=== PATIENT | female | born 2005 | race Two or more races ===

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

== ENCOUNTER 2024-01-10 21:20 | Emergency (ER) | payer OTHER ==
[2024-01-10 22:23] LABS: Barbiturates NEGATIVE (NEGATIVE); Benzodiazepines NEGATIVE (NEGATIVE); Cocaine NEGATIVE (NEGATIVE); METHAMPHETAM NEGATIVE (NEGATIVE); Methadone NEGATIVE (NEGATIVE); Opiates NEGATIVE (NEGATIVE); Phencyclidine NEGATIVE (NEGATIVE); THC Cannibis NEGATIVE (NEGATIVE)
[2024-01-10 22:23] LABS: ALT/SGPT 15 U/L (13-56); AST/SGOT 11 U/L (15-37); Albumin 3.1 g/dL (3.4-5.0); Albumin/Globulin Ratio 0.8 (1.1-1.8); Alkaline Phosphatase 78 U/L (45-117); Anion Gap 9.7 mEq/L (5.0-15.0); BUN Blood Urea Nitrogen 10 mg/dL (7-18); Bicarbonate 23 mEq/L (21-32); Bilirubin Total 0.2 mg/dL (0.2-1.0); Globulin 3.9 g/dL (2.3-3.5); Glomerular Filtration Rate 131 ml/min (=/>90); Glucose Level 87 mg/dL (74-106); Lipase 25 U/L (13-75); Potassium 3.7 mEq/L (3.5-5.1); Sodium Level 138 mEq/L (136-145)
[2024-01-10 22:25] LABS: Specific Gravity 1.019 (1.005-1.030)
[2024-01-10 22:26] LABS: Bilirubin Direct < 0.2 mg/dL (0-0.2)
[2024-01-10 22:35] LABS: Absolute Basophils 0.1 K/uL (0-0.5); Absolute Eosinophils 0.2 K/uL (0-0.5); Absolute Lymphocytes (CBC) 3.3 K/uL (0.7-4.9); Absolute Monocytes 0.9 K/uL (0.1-1.3); Basophils % 1.1 % (0-1.3); Hematocrit 34.2 % (36.0-45.0); Hemoglobin 11.6 g/dL (12.0-15.0); Lymphocytes % 31.3 % (15.3-44.8); MCH 30.5 pg (27.0-35.0); MCHC 33.8 g/dL (32.0-36.0); MCV 90.1 fL (80-100); MPV 7.8 fL (7.6-11.3); Monocytes % 8.9 % (3.3-12.3); Neutrophils % 56.7 % (41.7-73.7); Nucleated Red Blood Cells % 0.2 % (0-0); Platelets 479 thou/uL (152-406); Red Cell Distribution Width 13.4 % (12.1-15.2)
[2024-01-10 22:36] LABS: PT Prothrombin Time 10.8 SECONDS (9.4-12.5); PTT, Activated Partial Thromb 39.1 SECONDS (24.3-36.9); Protime INR 0.96
[2024-01-10 22:43] LABS: Specific Gravity 1.019 (1.005-1.030); Urine Bacteria None Seen /HPF (<20); Urine Bilirubin NEGATIVE (Negative); Urine Blood Negative (Negative); Urine Clarity Turbid (Clear); Urine Color Light-Yellow (Yellow); Urine Culture Reflex Order NOT NEEDED; Urine Glucose NEGATIVE (Negative); Urine Ketones NEGATIVE (Negative); Urine Microscopic Reflex YN ORDER UMIC; Urine Mucus Slight /HPF (None Seen); Urine Nitrite NEGATIVE (Negative); Urine Protein NEGATIVE (Negative); Urine RBC <5 /HPF (None Seen); Urine Urobilinogen Normal (Normal); Urine WBC <5 /HPF (<5); Urine pH 6.5 (5.0-7.0)
[2024-01-10] MEDS ORDERED: LORazepam 2 MG/ML VIAL ONE (22:49)
--- NOTE | 2024-01-11 05:16 | EDPHYS ---
Physician Documentation [facility] Name: Tobi Lawrence Age: 18 yrs Sex: Female : 2005 Arrival Date: 01/10/2024 Time: 21:20 Bed 15 Private MD: ED Physician Stephen Norris HPI: 01/09 21:29 This 18 yrs old [place] Female presents to ER via Unassigned with complaints of sp4 anxiety . 01/10 05:11 18-year-old female presents to the emergency room with complaint of anxiety about the sp4 fact that she is in the homeless skilled nursing. Also reported chest pains to the EMS.. 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 - Infectious Disease History:: Denies. - Social history:: Smoking status: Patient denies any tobacco usage or history of. - Family history:: not pertinent. ROS: 01/10 05:11 Constitutional: Negative for fever, chills, and weight loss, positive for anxiety , sp4 positive for abdominal pain All other systems are negative, Exam: 05:12 Constitutional: This is a well developed, well nourished patient who is awake, alert, sp4 patient is emotionally upset and tearful on arrival, anxious appearing Head/Face: Normocephalic, atraumatic. Eyes: Pupils equal round and reactive to light, extra-ocular motions intact. Lids and lashes normal. Conjunctiva and sclera are not injected. Cornea within normal limits. Periorbital areas with no swelling, redness, or edema. ENT: Nares patent. No nasal discharge, no septal abnormalities noted. Tympanic membranes are normal and external auditory canals are clear. Oropharynx with no redness, swelling, or masses, exudates, or evidence of obstruction, uvula midline. Mucous membranes moist. Neck: Trachea midline, no thyromegaly or masses palpated, and no cervical lymphadenopathy. Supple, full range of motion without nuchal rigidity, or vertebral point tenderness. Chest/axilla: Normal chest wall appearance and motion. Nontender with no deformity. No lesions are appreciated. Cardiovascular: Regular rate and rhythm with a normal S1 and S2. No gallops, murmurs, or rubs. Normal PMI, no JVD. No pulse deficits. Respiratory: Lungs have equal breath sounds bilaterally, clear to auscultation and percussion. No rales, rhonchi or wheezes noted. No increased work of breathing, no retractions or nasal flaring. Abdomen/GI: Soft, with normal bowel sounds. No distension or tympany. No guarding or rebound. No evidence of tenderness throughout. Back: No spinal tenderness. No costovertebral tenderness. Skin: Warm, dry with normal turgor. Normal color with no rashes, no lesions, and no evidence of cellulitis. MS/ Extremity: Pulses equal, no cyanosis. Neurovascular intact. Full, normal range of motion. Neuro: Awake and alert, GCS 15, oriented to person, place, time, and situation. Cranial nerves II-XII grossly intact. Motor strength 5/5 in all extremities. Sensory grossly intact. Psych: Awake, alert, with orientation to person, place and time. Positive for emotional upset, positive for tearfulness, negative for suicidal ideation Vital Signs: 01/09 21:53 BP 121 / 87; Pulse 84; Resp 18; Temp 97.9; Pulse Ox 100% ; Weight 54.43 kg; Height 5 al5 ft. 2 in. ; Pain 6/10; 22:00 BP 114 / 77; Pulse 89; Resp 18; Pulse Ox 99% on R/A; al5 23:00 BP 126 / 90; Pulse 72; Resp 17; Pulse Ox 100% on R/A; al5 01/10 00:12 BP 100 / 69; Pulse 76; Resp 18; Pulse Ox 100% on R/A; al5 00:30 BP 110 / 77; Pulse 50; Resp 14; Pulse Ox 100% on R/A; al5 01:00 BP 102 / 73; Pulse 58; Resp 16; Pulse Ox 98% on R/A; al5 01:30 BP 100 / 65; Pulse 56; Resp 15; Pulse Ox 99% on R/A; al5 02:00 BP 100 / 70; Pulse 56; Resp 17; Pulse Ox 100% on R/A; al5 02:30 BP 101 / 61; Pulse 59; Resp 17; Pulse Ox 100% on R/A; al5 03:00 BP 96 / 65; Pulse 57; Resp 16; Pulse Ox 99% on R/A; al5 03:30 BP 99 / 67; Pulse 55; Resp 16; Pulse Ox 100% ; al5 04:00 BP 110 / 68; Pulse 57; Resp 16; Pulse Ox 99% on R/A; al5 05:41 BP 101 / 65; Pulse 78; Resp 16; Pulse Ox 100% on R/A; al5 01/09 21:53 Body Mass Index 21.95 (54.43 kg, 157.48 cm) - Percentile 52.8 % al5 01/09 21:53 Pain Scale: Adult al5 Ilda Coma Score: 05:12 Eye Response: spontaneous(4). Motor Response: obeys commands(6). Verbal Response: sp4 oriented(5). Total: 15. MDM: 00:50 Patient medically screened. sp4 05:12 Differential Diagnosis altered mental status, Anxiety attack, Emotional upset . Data sp4 reviewed: vital signs, nurses notes, EMS record, old medical records, lab test result(s). ED course: Patient very emotionally upset on arrival but her primary complaint is the fact that she does not want to stay in the homeless skilled nursing. Patient also reported some chest pains and abdominal pains. Based on the patient's prior medical records she has no history of significant medical illness. Patient is stable for discharge from the emergency department since at this time there is no acute emergent medical or psychiatric condition. . 05:14 Consideration of Admission/Observation Escalation of care including sp4 admission/observation considered. ED course: Valium or Ativan were NOT given. . 01/09 21:30 Order name: Acetaminophen; Complete Time: 05: sp4 01/09 21:30 Order name: Basic Metabolic Panel; Complete Time: sp4 01/09 21:30 Order name: CBC with Diff; Complete Time: : sp4 01/09 21:30 Order name: ETOH Level; Complete Time: 05: sp4 01/09 21:30 Order name: Hepatic Function; Complete Time: 4 01/09 21:30 Order name: PT-INR; Complete Time: : [facility] 01/09 21:30 Order name: Test, Urine; Complete Time: 05:09 [facility] 01/09 21:30 Order name: Ptt, Activated; Complete Time: 05:09 [facility] 01/09 21:30 Order name: Salicylate; Complete Time: 05:09 [facility] 01/09 21:30 Order name: Urinalysis w/ reflexes; Complete Time: 05:09 [facility] 01/09 21:30 Order name: Urine Drug Screen; Complete Time: 05:09 [facility] 01/09 21:30 Order name: Lipase; Complete Time: 05:09 [facility] 01/09 21:30 Order name: IV Saline Lock; Complete Time: 22:44 [facility] 01/09 21:30 Order name: Labs collected and sent; Complete Time: 22:44 [facility] 01/09 21:30 Order name: Suicide Screening ([place]); Complete Time: 23:18 [facility] 01/09 22:57 Order name: Misc. Order: at this time please hold all medications ; Complete Time: 23:00sp4 Administered Medications: 01/09 23:00 Not Given (patient relax and sleeping ): ativan2 mg IVP once ha1 23:01 Not Given (patient relaxx): diazepam5 mg PO once ha1 Disposition Summary: 01/11/24 05:15 Discharge Ordered Notes: Location: Home sp4 Problem: new sp4 Symptoms: have improved sp4 Condition: Stable sp4 Diagnosis - Emotional upset, acute anxiety attack sp4 Followup: sp4 - With: Private Physician - When: As needed - Reason: Discharge Instructions: - Discharge Summary Sheet sp4 - Managing Anxiety, Adult sp4 Forms: - Patient Portal Instructions sp4 Signatures: Dispatcher [employer] EDMS Stephen Norris MD MD sp4 Raya Hermosillo RN RN al5 Dinorah Alfredo RN ha1 Corrections: (The following items were deleted from the chart) 21: 21:31 ACETAMINOPHEN+C.LAB.BRZ ordered. EDMS EDMS 21:31 21:31 BASIC METABOLIC PANEL+C.LAB.BRZ ordered. EDMS EDMS 21:31 21:31 CBC+H.LAB.BRZ ordered. EDMS EDMS 21:31 21:31 ETHANOL+C.LAB.BRZ ordered. EDMS EDMS 21:31 21:31 HEPATIC FUNCTION+C.LAB.BRZ ordered. EDMS EDMS 21:31 PROTIME (+INR)+COAG.LAB.BRZ ordered. EDMS EDMS 21:31 Test, Urine+UC.LAB.BRZ ordered. EDMS EDMS 21:31 PTT, ACTIVATED+COAG.LAB.BRZ ordered. EDMS EDMS 21:31 SALICYLATE+C.LAB.BRZ ordered. EDMS EDMS 21:31 Urinalysis+U.LAB.BRZ ordered. EDMS EDMS 21:31 URINE DRUG SCREEN+UC.LAB.BRZ ordered. EDMS EDMS 01/10 04:45 01/09 21:30 EKG - Nurse/Tech ordered. sp4 al5
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
[2024-01-11 05:52] VITALS: TEMP 97.9
[2024-01-11 06:20] VITALS: BP 101/65; O2SAT 100
== END 2024-01-11 05:43 | disposition home or self-care (01) ==
LOC: ER 21:20
DX: F41.0 Panic disorder [episodic paroxysmal anxiety] (principal); Z59.01 Sheltered homelessness
CPT/HCPCS: 36415; 80048; 80076; 80143; 80179; 80307; 81001; 81025; 82077; 83690; 85025; 85610; 85730

== ENCOUNTER 2024-07-08 19:25 | Emergency (ER) | payer OTHER, MEDICAID ==
[2024-07-08 19:55] LABS: Absolute Basophils 0.1 K/uL (0-0.5); Absolute Lymphocytes (CBC) 2.1 K/uL (0.7-4.9); Absolute Monocytes 0.6 K/uL (0.1-1.3); Absolute Neutrophil 2.3 K/uL (1.8-8.0); Basophils % 1.3 % (0-1.3); Hematocrit 37.7 % (36.0-45.0); Hemoglobin 12.6 g/dL (12.0-15.0); Lymphocytes % 40.4 % (15.3-44.8); MCH 31.4 pg (27.0-35.0); MCHC 33.4 g/dL (32.0-36.0); MPV 7.9 fL (7.6-11.3); Monocytes % 11.8 % (3.3-12.3); Neutrophils % 45.5 % (41.7-73.7); Platelets 304 thou/uL (152-406); RBC Red Blood Cell Count 4.01 M/uL (3.86-4.86); Red Cell Distribution Width 13.1 % (12.1-15.2)
[2024-07-08 19:58] LABS: Specific Gravity > 1.030 (1.005-1.030)
[2024-07-08 19:59] LABS: Specific Gravity > 1.030 (1.005-1.030); Sqamous Epithelial <5 /HPF (None Seen); Urine Bacteria <20 /HPF (<20); Urine Bilirubin NEGATIVE (Negative); Urine Blood Negative (Negative); Urine Clarity Clear (Clear); Urine Color Yellow (Yellow); Urine Culture Reflex Order NOT NEEDED; Urine Glucose NEGATIVE (Negative); Urine Ketones NEGATIVE (Negative); Urine Microscopic Reflex YN ORDER UMIC; Urine Mucus Slight /HPF (None Seen); Urine Nitrite NEGATIVE (Negative); Urine Protein 1+ (Negative); Urine RBC <5 /HPF (None Seen); Urine Urobilinogen 1+ (Normal); Urine WBC <5 /HPF (<5); Urine WBC Clump Rare /HPF (None Seen); Urine Yeast (Budding) Trace /HPF (None Seen)
[2024-07-08] MEDS ORDERED: KETOROLAC 30 MG/ML INJ ONE (20:04)
[2024-07-08] MEDS ORDERED: NA CHLORIDE 0.9% 1,000 ML ONE (20:05)
[2024-07-08] MEDS ORDERED: METOCLOPRAMIDE 10 MG/2mL INJ ONE (20:05)
[2024-07-08] MEDS ORDERED: DIPHENHYDRAMINE 50 MG/ML VIAL ONE (20:05)
[2024-07-08 20:12] LABS: AST/SGOT 13 U/L (15-37); Albumin 3.3 g/dL (3.4-5.0); Albumin/Globulin Ratio 0.9 (1.1-1.8); Alkaline Phosphatase 49 U/L (45-117); Anion Gap 10.8 mEq/L (5.0-15.0); BUN Blood Urea Nitrogen 16 mg/dL (7-18); Bicarbonate 28 mEq/L (21-32); Bilirubin Total 0.3 mg/dL (0.2-1.0); Globulin 3.8 g/dL (2.3-3.5); Glomerular Filtration Rate 110 ml/min (=/>90); Glucose Level 129 mg/dL (74-106); Lipase 24 U/L (13-75); Potassium 3.8 mEq/L (3.5-5.1); Protein, Total 7.1 g/dL (6.4-8.2); Sodium Level 142 mEq/L (136-145)
[2024-07-08 20:13] LABS: ALT/SGPT < 14 U/L (13-56)
--- NOTE | 2024-07-08 21:04 | RAD REPORT ---
EXAM: Right upper quadrant ultrasound. CLINICAL HISTORY: ABD PAIN COMPARISON: None. FINDINGS: Gallbladder: Normal. Bile ducts: No intrahepatic or extrahepatic biliary dilatation. Common bile duct measures 2 mm. Limited imaging of the liver shows no concerning finding. IMPRESSION: Unremarkable exam.
--- NOTE | 2024-07-08 21:22 | RAD REPORT ---
EXAM: XR of the abdomen HISTORY: Abdominal pain ABD PAIN COMPARISON: None FINDINGS: XR of the abdomen shows a nonspecific, nonobstructive bowel gas pattern. No suspicious ritika cifications are seen. Mild thoracolumbar levoscoliosis. Moderate stool throughout the colon. IMPRESSION: Moderate constipation.
--- NOTE | 2024-07-08 21:39 | ER ---
Nurse's Notes [facility] Name: Tobi Lawrence Age: 19 yrs Sex: Female : 2005 Arrival Date: 07/08/2024 Time: 19:25 Bed 15 Private MD: Diagnosis: Headache;Nausea;Constipation, unspecified;Abdominal pain, unspecified Presentation: 07/08 19:30 Chief complaint: EMS states: abdominal pain. Coronavirus screen: Client denies travel kj2 out of the [place] in the last 14 days. Ebola Screen: No symptoms or risks identified at this time. Initial Sepsis Screen: Does the patient meet any 2 criteria? No. Patient's initial sepsis screen is negative. Does the patient have a suspected source of infection? No. Patient's initial sepsis screen is negative. Risk Assessment: Do you want to hurt yourself or someone else? Patient reports no desire to harm self or others. Onset of symptoms was July 08, 2024. 19:30 Method Of Arrival: EMS: [facility] kj2 19:30 Acuity: WILLIAM 3 kj2 Triage Assessment: 19:32 General: Appears in no apparent distress. Behavior is cooperative. Pain: Complains of kj2 pain in abdomen. Neuro: Level of Consciousness is awake, alert, obeys commands, Oriented to person, place, time, situation. Cardiovascular: Patient's skin is warm and dry. Respiratory: Airway is patent Respiratory effort is unlabored. GI: Reports lower abdominal pain. : Reports burning with urination, since 2 days vaginal itching. 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 - Infectious Disease History:: Denies. - Social history:: Smoking status: unknown. Screenin:34 [facility] ED Fall Risk Assessment (Adult) History of falling in the last 3 months, kj2 including since admission No falls in past 3 months (0 pts) Confusion or Disorientation No (0 pts) Intoxicated or Sedated No (0 pts) Impaired Gait No (0 pts) Mobility Assist Device Used No (0 pt) Altered Elimination No (0 pt) Score/Fall Risk Level 0 - 2 = Low Risk Maintained a safe environment, Hourly rounding (assess needs \T\ fall precautionary measures) done. Abuse screen: Denies threats or abuse. Denies injuries from another. Nutritional screening: No deficits noted. Tuberculosis screening: No symptoms or risk factors identified. Assessment: 19:34 General: see triage assessment. kj2 19:45 GI: Bowel sounds hypoactive in left upper quadrant and right upper quadrant Abd is non kj2 tender X 4 quads. 20:30 Reassessment: Patient appears in no apparent distress at this time. Patient and/or kj2 family updated on plan of care and expected duration. Pain level reassessed. Patient is alert, oriented x 3, equal unlabored respirations, skin warm/dry/pink. 21:30 Reassessment: Patient appears in no apparent distress at this time. Patient and/or kj2 family updated on plan of care and expected duration. Pain level reassessed. Patient is alert, oriented x 3, equal unlabored respirations, skin warm/dry/pink. 21:54 Reassessment: Patient appears in no apparent distress at this time. Patient and/or kj2 family updated on plan of care and expected duration. Pain level reassessed. Patient is alert, oriented x 3, equal unlabored respirations, skin warm/dry/pink. Vital Signs: 20:30 BP 108 / 74; Pulse 70; Resp 18; Pulse Ox 100% on R/A; kj2 21:30 BP 88 / 72; Pulse 61; Resp 20; Temp 98; Pulse Ox 100% ; kj2 ED Course: 19:28 Patient arrived in ED. ec2 19:29 Tiago Potter MD is Attending Physician. ec2 19:29 Shey Mcpherson, LUCRECIA is Primary Nurse. kj2 19:30 Giovanny Dimas PA is PHCP. ec2 19:31 Triage completed. kj2 19:35 Arm band placed on Patient placed in an exam room, on a stretcher. kj2 19:35 Patient has correct armband on for positive identification. Bed in low position. Call kj2 light in reach. Side rails up X 1. Provided Education on: call light. 20:54 US Abdomen Limited: ruq In Process Unspecified. EDMS 21:09 XRAY Abdomen 1 View (KUB) In Process Unspecified. EDMS 21:55 No provider procedures requiring assistance completed. IV discontinued, intact, kj2 bleeding controlled, No redness/swelling at site. Pressure dressing applied. Administered Medications: 20:12 Drug: NS 0.9% IV 1000 ml IV at 1 bolus Per protocol; to be given as a bolus over 60 kj2 minutes Route: IV; Rate: 1 bolus; Site: right antecubital; 21:55 Follow up: IV Status: Completed infusion; IV Intake: 1000ml kj2 20:12 Drug: metoCLOPramide IVP 10 mg IVP once; over 1 to 2 minutes Route: IVP; Site: right kj2 antecubital; 21:55 Follow up: Response: No adverse reaction kj2 20:12 Drug: diphenhydrAMINE IVP 25 mg IVP once Route: IVP; Site: right antecubital; kj2 21:55 Follow up: Response: No adverse reaction kj2 20:12 Drug: Ketorolac IVP 15 mg IVP once Route: IVP; Site: right antecubital; kj2 21:55 Follow up: Response: No adverse reaction kj2 21:50 Drug: Lactulose PO 30 grams 45 ml PO once Volume: 45 ml; Route: PO; kj2 21:54 Follow up: Response: No adverse reaction kj2 21:50 Drug: Dulcolax PO Delayed Release Tablet 5 mg PO once Route: PO; kj2 21:54 Follow up: Response: No adverse reaction kj2 Medication: 19:35 VIS not applicable for this client. kj2 Intake: 21:55 IV: 1000ml; Total: 1000ml. kj2 Outcome: 21:39 Discharge ordered by . cp 21:57 Discharged to home ambulatory, kj2 21:57 Condition: stable 21:57 Discharge instructions given to patient, Instructed on discharge instructions, follow up and referral plans. Demonstrated understanding of instructions, follow-up care, 22:04 Patient left the ED. kj2 Signatures: Dispatcher [employer] EDMS Giovanny Dimas PA PA cp Corral, Edwin, MD MD ec2 Shey Mcpherson RN RN kj2 Corrections: (The following items were deleted from the chart) 20:32 20:32 To radiology for Abdomen Limited+[email or web address]. kj2 EDMS
--- NOTE | 2024-07-08 21:40 | EDPHYS ---
Physician Documentation [facility] Name: Tobi Lawrence Age: 19 yrs Sex: Female : 2005 Arrival Date: 07/08/2024 Time: 19:25 Bed 15 Private MD: ED Physician Tiago Pottre HPI: 07/08 19:33 This 19 yrs old [place] Female presents to ER via EMS with complaints of Abdominal cp Pain. 19:33 The patient presents with abdominal pain in the upper abdomen, mid abdomen. cp 19:33 Onset: The symptoms/episode began/occurred today. The symptoms do not radiate. cp Associated signs and symptoms: Pertinent positives: headache, Pertinent negatives: blood in stools, chest pain, diarrhea, dysuria, fever, hematuria, vomiting, vaginal bleeding. The symptoms are described as constant. 19:33 Severity of pain: in the emergency department the pain is unchanged. 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 - Infectious Disease History:: Denies. - Social history:: Smoking status: unknown. ROS: 19:35 Constitutional: Negative for body aches, chills, fever, poor PO intake, cp 19:35 Cardiovascular: Negative for chest pain, palpitations, cp 19:35 Respiratory: Negative for cough, shortness of breath, wheezing, 19:35 Abdomen/GI: Positive for abdominal pain, nausea, Negative for vomiting, diarrhea, 19:35 Neuro: Positive for headache, Negative for altered mental status, dizziness, weakness, 19:35 Eyes: Negative for injury, pain, redness, and discharge, cp 19:35 ENT: Negative for drainage from ear(s), ear pain, sore throat, difficulty swallowing, cp difficulty handling secretions, 19:35 Neck: Negative for pain with movement, pain at rest, stiffness, 19:35 Back: Negative for pain at rest, pain with movement, 19:35 : Negative for hematuria, burning with urination, difficulty urinating, vaginal bleeding, 19:35 All other systems are negative, Exam: 19:40 Constitutional: The patient appears in no acute distress, alert, awake, non-toxic, well cp developed, well nourished, 19:40 Head/Face: Normocephalic, atraumatic. cp 19:40 Eyes: Periorbital structures: appear normal, Pupils: equal, round, and reactive to light and accomodation, Extraocular movements: intact throughout, Conjunctiva: normal, no exudate, no injection, Sclera: no appreciated abnormality, Lids and lashes: appear normal, bilaterally, 19:40 ENT: External ear(s): are unremarkable, Nose: is normal, Mouth: Lips: moist, Oral mucosa: pink and intact, moist, Posterior pharynx: Airway: no evidence of obstruction, patent, erythema, is not appreciated, exudate, is not appreciated, 19:40 Chest/axilla: Inspection: normal, 19:40 Respiratory: the patient does not display signs of respiratory distress, Respirations: normal, no use of accessory muscles, no retractions, labored breathing, is not present, Breath sounds: are clear throughout, no decreased breath sounds, no stridor, no wheezing, 19:40 Abdomen/GI: Inspection: abdomen appears normal, Bowel sounds: active, all quadrants, Palpation: soft, in all quadrants, mild abdominal tenderness, in the right upper quadrant and left upper quadrant, rebound tenderness, is not appreciated, involuntary guarding, is not appreciated, 19:40 Back: CVA tenderness, is absent, 19:40 Neuro: Orientation: to person, place \T\ time. Mentation: is normal, Cerebellar function: cp is grossly normal, Motor: moves all fours, strength is normal, Sensation: no obvious gross deficits, Vital Signs: 20:30 BP 108 / 74; Pulse 70; Resp 18; Pulse Ox 100% on R/A; kj2 21:30 BP 88 / 72; Pulse 61; Resp 20; Temp 98; Pulse Ox 100% ; kj2 MDM: 19:29 Medical Screening Exam initiated ec2 20:00 Differential diagnosis: appendicitis, cholecystitis, Cholelithiasis, gastritis, cp non-specific abd pain, Pyelonephritis, urinary tract infection, migraine, electrolyte abnormality, dehydration, constipation. 21:38 Data reviewed: vital signs, nurses notes, lab test result(s), radiologic studies, plain cp films, ultrasound, and as a result, I will discharge patient. 21:38 I considered the following discharge prescriptions or medication management in the emergency department Medications were administered in the Emergency Department. See MAR. Test considered but Not performed: CT: head and ct abdomen/pelvis. Counseling: I had a detailed discussion with the patient and/or guardian regarding the historical points, exam findings, and any diagnostic results supporting the discharge/admit diagnosis, lab results, radiology results, to return to the emergency department if symptoms worsen or persist or if there are any questions or concerns that arise at home. Response to treatment: the patient's symptoms have mildly improved after treatment, and as a result, I will discharge patient. Special discussion: Based on the patient's Hx, exam, and Dx evaluation, there is no indication for emergent surgery or inpatient Tx. It is understood by the patient/guardian that if the Sx's persist or worsen they need to return immediately for re-evaluation. 07/08 19:32 Order name: CBC with Diff; Complete Time: 20:15 07/08 19:32 Order name: CMP; Complete Time: 20:15 07/08 20:15 Interpretation: Normal except: GLUC 129; AST 13; CA 8.3; ALB 3.3; GLOB 3.8; A/G 0.9. 07/08 19:32 Order name: Lipase; Complete Time: 20:15 07/08 19:32 Order name: Test, Urine; Complete Time: 20:15 07/08 20:15 Interpretation: Normal except: Urine SG > 1.030. 07/08 19:32 Order name: Urinalysis w/ reflexes; Complete Time: 20:15 07/08 20:15 Interpretation: Normal except: Urine SG > 1.030; UPROT 1+; UUROB 1+; BYST Trace. 07/08 20:16 Order name: US Abdomen Limited: ruq; Complete Time: 21:31 07/08 21:31 Interpretation: Reviewed. 07/08 20:46 Order name: XRAY Abdomen 1 View (KUB); Complete Time: 21:31 07/08 21:32 Interpretation: Report reviewed. 07/08 19:32 Order name: IV Saline Lock; Complete Time: 20:13 07/08 19:32 Order name: Labs collected and sent; Complete Time: 20:13 07/08 20:16 Order name: NPO; Complete Time: 20:31 cp Administered Medications: 20:12 Drug: NS 0.9% IV 1000 ml IV at 1 bolus Per protocol; to be given as a bolus over 60 kj2 minutes Route: IV; Rate: 1 bolus; Site: right antecubital; 21:55 Follow up: IV Status: Completed infusion; IV Intake: 1000ml kj2 20:12 Drug: metoCLOPramide IVP 10 mg IVP once; over 1 to 2 minutes Route: IVP; Site: right kj2 antecubital; 21:55 Follow up: Response: No adverse reaction kj2 20:12 Drug: diphenhydrAMINE IVP 25 mg IVP once Route: IVP; Site: right antecubital; kj2 21:55 Follow up: Response: No adverse reaction kj2 20:12 Drug: Ketorolac IVP 15 mg IVP once Route: IVP; Site: right antecubital; kj2 21:55 Follow up: Response: No adverse reaction kj2 21:50 Drug: Lactulose PO 30 grams 45 ml PO once Volume: 45 ml; Route: PO; kj2 21:54 Follow up: Response: No adverse reaction kj2 21:50 Drug: Dulcolax PO Delayed Release Tablet 5 mg PO once Route: PO; kj2 21:54 Follow up: Response: No adverse reaction kj2 Disposition Summary: 07/08/24 21:39 Discharge Ordered Notes: Location: Home cp Problem: new cp Symptoms: have improved cp Condition: Stable cp Diagnosis - Headache cp - Nausea cp - Constipation, unspecified cp - Abdominal pain, unspecified cp Followup: cp - With: Private Physician - When: 2 - 3 days - Reason: Worsening of condition Discharge Instructions: - Discharge Summary Sheet cp - Abdominal Pain, Adult cp - Constipation, Adult cp - General Headache Without Cause cp - Nausea, Adult cp Forms: - Medication Reconciliation Form cp - Antibiotic Education cp - Prescription Opioid Use cp - Patient Portal Instructions cp - Leadership Thank You Letter cp Prescriptions: - Ibuprofen 600 mg Oral tablet - take 1 tablet ORAL route every 8 hours As needed take with food; 30 tablet; cp Refills: 0, Product Selection Permitted - Zofran 4 mg Oral Tablet - take 1 tablet ORAL route every 12 hours As needed; 20 tablet; Refills: 0, cp Product Selection Permitted Addendum: 07/10/2024 00:17 I was immediately available for consultation during this patient's visit. I did not e c2 personally see the patient or discuss the patient with the REJI. . Signatures: Dispatcher [employer] EDMS Giovanny Dimas PA PA cp Corral, Edwin, MD MD ec2 Shey Mcpherson RN RN kj2 Corrections: (The following items were deleted from the chart) 07/08 19:33 19:33 CBC+H.LAB.BRZ ordered. EDMS EDMS 19:33 19:33 COMPREHENSIVE METABOLIC PANEL+C.LAB.BRZ ordered. EDMS EDMS 19:33 19:33 LIPASE+C.LAB.BRZ ordered. EDMS EDMS 19:33 19:33 Test, Urine+UC.LAB.BRZ ordered. EDMS EDMS 19:33 19:33 Urinalysis+U.LAB.BRZ ordered. EDMS EDMS 20:32 20:17 Abdomen Limited+US.RAD.BRZ ordered. EDMS EDMS
[2024-07-08] MEDS ORDERED: LACTULOSE 20 GM/30 ML UCUP ONE (21:43)
[2024-07-08] MEDS ORDERED: BISACODYL E.C. 5 MG TAB PO ONE (21:43)
[2024-07-08 22:07] VITALS: O2SAT 100
[2024-07-08 22:08] VITALS: BP 88/72; TEMP 98
== END 2024-07-08 22:04 | disposition home or self-care (01) ==
LOC: ER 19:25
DX: R51.9 Headache, unspecified (principal); K59.00 Constipation, unspecified; R11.0 Nausea; R10.9 Unspecified abdominal pain
CPT/HCPCS: 96361; 85025; 81001; 36415; 81025; 83690; 80053; 74018; 76705; 96375; 96374; 99284; J2765; J1200; J7030